=== PATIENT | female | born 1990 | race Caucasian/White ===

== ENCOUNTER → 2017-06-10 | Day surgery (SDC) | payer OTHER ==
[2017-05-10 15:36] VITALS: Ht 171.5 cm; Wt 74.6 kg
[~2017-06-10] VITALS: Ht 171.5 cm; Wt 74.6 kg
[~2017-06-10] MED LIST: ACETAMINOPHEN 1000 MG/100 ML IV IV ONE; ATROPINE SULFATE 0.1 MG/ML 5ML SYR IV PRN; CEFAZOLIN 2000MG IV PUSH 15 ML IV SCH; DEXAMETHASONE SOD INJ 4 MG/ML VIAL ONE; EpHEDrine SULFATE INJ 50 MG/ML AMP IV PRN; FENTANYL CITRATE INJ 50 MCG/1 ML 2 ML VIAL ONE; GLYCOPYRROLATE INJ 0.2 MG/ML VIAL ONE; HYDROmorphone INJ 2 MG/ML SYR/VIAL IV PRN; IBUPROFEN 600 MG TAB PO PRN; KETOROLAC TROMETHAMINE 30 MG/ML VIAL IV. PRN; KETOROLAC TROMETHAMINE 30 MG/ML VIAL ONE; LACTATED RINGER'S 1000ML 1,000 ML IV SCH; LIDOCAINE HCL 2% 2 ML VIAL (20MG/ML) ONE; MIDAZOLAM HCL 1 MG/ML 2ML VIAL ONE; NEOSTIGMINE METHYLSULFATE 5 MG/5 ML SYR ONE; ONDANSETRON INJ 2 MG/ML 2 ML VIAL IV PRN; ONDANSETRON INJ 2 MG/ML 2 ML VIAL ONE; OXYCODONE/ACETAMINOPHEN 5-325 TAB PO PRN; PHENYLEPHRINE 100MCG/ML 5ML SYR IV PRN; PROMETHAZINE HCL INJ 25 MG in SODIUM CHLORIDE 0.9% 50ML 50 ML IV PRN; PROPOFOL IV EMULSION 10 MG/ML 20 ML VIAL IV ONE; ROCURONIUM BROMIDE 10 MG/ML 5 ML VIAL IV ONE; SODIUM CHLORIDE 0.9% 1000ML 1,000 ML IV SCH
[2017-06-10 10:32] VITALS: BP 124/81; PULSE 71; TEMP 36.6; O2SAT 98
--- NOTE | 2017-06-10 12:53 | History & Physical Bridge Note ---
H&P Re-Evaluation Bridge Note: I have examined the patient, reviewed the History & Physical and in the interval since the performance of the History & Physical I have noted the following changes of clinical significance: No changes noted
--- NOTE | 2017-06-10 14:43 | [facility] Post Operative Brief Note ---
Immediate Operative Summary Operative Date Jun 10, 2017. Pre-Operative Diagnosis Right ovarian cyst, probable dermoid Post-Operative Diagnosis Same as preop Procedure(s) Performed Robotic-assisted laparoscopic Right ovarian Cystectomy Surgeon Dr. Mann [employer] Surgeon(s) Dr. Sadler Estimated Blood Loss 10 cc Findings Consistent with Post-Op Diagnosis Specimens A: right ovarian cyst Drains None Anesthesia Type General Complication(s) none Disposition Accompanied Pt To Recover: no Disposition: Recovery Room / PACU
--- NOTE | 2017-06-10 15:10 | Discharge Instructions ---
Discharge Instructions Date of Service Jun 10, 2017. Visit Reason for Visit: Vasovagal Syncope, Right Ovarian Cyst Discharge Discharge Diagnosis / Problem: Right ovarian dermoid Discharge Goals Goal(s): Specific goals Activity Recommendations Activity Limitations: per Instructions/Follow-up section Anesthesia . Post Anesthesia Instructions: If you have had General Anesthesia or IV Sedation: * Do not drive today. * Resume driving when surgeon permits. * Do not make important decisions or sign legal documents today. * Call surgeon for: 1. Temperature elevations greater than 101 degrees F. 2. Uncontrollable pain. 3. Excessive bleeding. 4. Persistent nausea and vomiting. 5. Medication intolerance (nausea, vomiting or rash). * For nausea and vomiting use only clear liquids such as: tea, soda, bouillon until nausea subsides, then gradually increase diet as tolerated. * If you have any concerns or questions, call your surgeon's office. If physician is unavailable and it is an emergency, call 911 or go to the nearest emergency room. . Instructions / Follow-Up Instructions / Follow-Up ACTIVITY RECOMMENDATIONS: * Rest the first 2-3 days. You should be back to your normal activity levels by day 3. * No heavy lifting for 2 weeks. * No intercourse, tampons or douching for 1-2 weeks. * You may shower the next day. * Do not drive anytime that you are taking narcotic pain medicines. RETURN TO SCHOOL/WORK: * May return to school or work after 2-3 days. DIET: Nausea may occur in the immediate post-operative period. If so, take clear liquids such as tea, bouillon, apple juice until all nausea has subsided, then resume usual diet. MEDICATIONS: Resume previous medications unless instructed otherwise by your surgeon. Ibuprofen 200mg 2-3 tablets every 4-6 hours as needed -- OR -- Aleve 2 tablets every 8-12 hours as needed for post-operative discomfort Medications are over the counter. Tylenol may be used if above medications are contraindicated or not preferred. Medication should be taken with food or milk. Do not take on an empty stomach. SPECIAL CARE INSTRUCTIONS: * Check temperature twice daily for one week. report any elevation over 101 degrees. * You may experience some vagina spotting and/or bleeding. This is normal for 1 -2 weeks and should not be heavier than a normal period. If it is unusual in amount, call your physician. * Post-operative discomfort may consist of a sore throat, a "bloated" feeling and pain in the shoulders. these are normal symptoms, which usually only last for 2-3 days. * Remove band-aids tomorrow and shower. There is no need to replace band-aids unless there is drainage or discomfort. FOLLOW UP VISIT: Call your doctor's office for a post-operative 2 week visit if not already scheduled. Diet Recommendations Recommended Home Diet: resume previous diet Procedures Procedures Performed: Robotic-assisted laparoscopic Right ovarian Cystectomy Pending Studies Studies pending at discharge: no Medical Emergencies . Who to Call and When: Medical Emergencies: If at any time you feel your situation is an emergency, please call 911 immediately. . Non-Emergent Contact Non-Emergency issues call your: Primary Care Provider . . "Provider Documentation" section prepared by Frida Mann. .
--- NOTE | 2017-06-10 15:34 | OPERATIVE REPORT ---
DATE OF OPERATION: 06/10/2017 PREOPERATIVE DIAGNOSIS: Right ovarian cyst, probable dermoid. POSTOPERATIVE DIAGNOSIS: Right ovarian cyst, probable dermoid. PROCEDURE: Robotic assisted laparoscopic right ovarian cystectomy. SURGEON: Dr. Mann. PHYSICIAN INTERNIST: Dr. Sadler. ESTIMATED BLOOD LOSS: 10 mL. FINDINGS: Consistent with postoperative diagnosis. SPECIMENS: Right ovarian cyst. DRAINS: None. ANESTHESIA: General. COMPLICATIONS: None. DISPOSITION: Stable to recovery. DESCRIPTION: Wilma Hilton is a 26-year-old who has a right ovarian cyst believed to be a dermoid based on imaging. The patient was brought to the operating room for a laparoscopic right ovarian cystectomy. She was placed on the table in the supine position then placed in dorsal lithotomy using Yellofin stirrups, prepped and draped in standard sterile fashion and a hard time-out was taken prior to proceeding. Garduno catheter and Bone's cannula were introduced. Attention was then turned to the abdomen where umbilical entry was made in an optical manner without complication. The abdomen was then insufflated and under direct visualization, right and left lower quadrant ports were placed. The patient was placed in Trendelenburg and visualization of the pelvic organs showed there was a normal uterus, normal tubes, normal left ovary and grossly enlarged right ovary consistent with a 4-5 cm cystic structure inside the ovary. The appendix was normal and the liver edge and left upper quadrant were normal as well. Robot was then docked. Surgery began by elevation of the right ovary to examine all the surfaces. A point of entry was selected and the cauterizing scissors were used to make a longitudinal entry point in the ovarian stroma. This was dissected using blunt and sharp technique until a plane was encountered. Approximately 90% of a large ovarian cyst was successfully shelled out of the ovary, at which point unfortunately a small entry to the cyst was made and a borrego oily type fluid was seen to escape the cyst. Another trocar site was quickly created in the left upper quadrant and this was used to introduce an EndoCatch bag which was held underneath the ovary and cyst to collect any drippings as the remainder of the cyst was detached from the ovarian stroma. The cyst was then placed inside the EndoCatch bag which was sealed and this was then brought out through the left upper quadrant site and fully enclosed in the bag. The trocar was then reintroduced and suction irrigation was used to rinse the right adnexal fossa and the ovary copiously. Brief application of electrocautery was used to tidy up small areas of oozing within the bed of the ovary where the cyst had been removed. Once the ovarian bed was hemostatic, the robot was undocked. At that time using straight stick laparoscopy, 1300 mL of normal saline irrigant were used to copiously rinse the abdominal cavity. By repositioning the bed into and out of Trendelenburg position, we were able to swash the fluid up around the abdominal organs and then rinse back down into the pelvis to allow evacuation of all of the irrigant fluid by suction in the cul-de-sac while the patient was held in reverse Trendelenburg position. We were able to remove the entire quantity of fluid and the rinsing was noted to be clear and free of any debris. The patient was then placed flat. All ports were removed after gas was allowed to escape the abdomen and the port sites were closed using UR-6 at the umbilical and left upper quadrant sites and 4-0 Monocryl at the skin level. A Dermabond dressing was then applied to each site and the Garduno and Bone's cannula were then removed. The patient was transferred in stable condition to the recovery room. I attest to the content of the Intraoperative Record and any orders documented therein. Any exceptions are noted below. MEHUL
--- NOTE | 2017-06-10 15:34 | Anesthesiology Progress Note ---
Anesthesia Post Op Note Date & Time Jun 10, 2017 at 15:34 Vital Signs Pain Intensity: 2 Vital Signs Past 12 Hours Date Time Temp Pulse Resp B/P (MAP) Pulse Ox O2 Delivery O2 Flow Rate FiO2 06/10/17 15:30 36.6 56 16 129/87 100 Room Air 06/10/17 15:25 56 16 127/82 100 Room Air 06/10/17 15:15 56 16 124/87 100 Room Air 06/10/17 15:05 56 16 128/85 100 Oxymask 10 06/10/17 14:55 56 16 118/74 100 Oxymask 10 06/10/17 14:48 36 68 16 137/81 100 Oxymask 10 06/10/17 10:32 36.6 71 18 124/81 (95) 98 Room Air Notes Mental Status: alert / awake / arousable, participated in evaluation Pt Amnestic to Procedure: Yes Nausea / Vomiting: adequately controlled Pain: adequately controlled Airway Patency, RR, SpO2: stable & adequate BP & HR: stable & adequate Hydration State: stable & adequate Anesthetic Complications: no major complications apparent
[2017-06-10 15:40] VITALS: BP 129/71; PULSE 59; TEMP 36.5; O2SAT 97
[2017-06-10 16:20] VITALS: BP 115/69; PULSE 60; TEMP 36.6; O2SAT 98
== END | disposition home or self-care (01) ==
LOC: C.ACU 09:44
PROVIDERS: ATTEND Obstetrics & Gynecology
DX: D27.0 Benign neoplasm of right ovary (principal); K21.9 Gastro-esophageal reflux disease without esophagitis; Z80.0 Family history of malignant neoplasm of digestive organs

== ENCOUNTER 2019-02-19 14:42 | Inpatient (IN) ==
[2019-02-19] MEDS ORDERED: PENICILLIN G POTASSIUM 3 MU in DEXTROSE 5% 100 ML IV PRN (14:54)
[2019-02-19] MEDS ORDERED: OXYTOCIN 30 UNITS/500 ML BAG IV PRN ×3 (14:54→17:55)
[2019-02-19] MEDS ORDERED: PENICILLIN G POTASSIUM 6 MU in DEXTROSE 5% 250 ML IV STA (15:02)
[2019-02-19] MEDS ORDERED: MAGNESIUM SULFATE 4GM / WTR 100 ML BAG IV ONE ×2 (15:12→15:13)
[2019-02-19] MEDS ORDERED: MAGNESIUM SULFATE 40GM / WTR 1,000 ML BAG IV ONE (15:12)
[2019-02-19] MEDS ORDERED: LABETALOL HCL IV 5 MG/ML 20ML IV STA (15:13)
[2019-02-19] MEDS ORDERED: LABETALOL HCL IV 5 MG/ML 20ML IV ONE (15:17)
[2019-02-19] MEDS: LACTATED RINGER'S 1,000 ML IV PRN ×2 (15:20→23:55)
[2019-02-19 15:30] LABS: Hematocrit (blood only) 34.4 % (37-47); Mean Corpuscular Hemoglobin 30.7 pg (25-34); Mean Platelet Volume 12.4 fL (7.4-10.4); Platelet Count 132 K/uL (130-400); RDW Coefficient of Variation 12.8 % (11.5-14.5); RDW Standard Deviation 40.7 fL (36.4-46.3); Red Blood Count 3.91 M/uL (4.2-5.4); White Blood Count 9.01 K/uL (4.8-10.8)
[2019-02-19 15:34] LABS: Mean Corpuscular Hgb Conc 34.9 g/dL (32-36)
--- NOTE | 2019-02-19 15:34 | History & Physical Report ---
Date of Service February 19, 2019 Assessment & Plan (1) Severe pre-eclampsia, antepartum: -Tracing category 1 with good accelerations and variability's -Patient with severe preeclampsia will start magnesium 4 g loading dose, 2 g/h -PIH labs have been drawn -Penicillin ordered for the positive GBS, but could not wait for penicillin to be in and membranes were ruptured, pediatrics aware -Patient desires epidural, have discussed with anesthesia -Patient will receive labetalol 20 mg IV as needed to bring blood pressures down -As long as labor is progressing and laboratory values are not alarming, will allow vaginal delivery -Explained all of the above to the patient, questions answered (2) Carrier of group B Streptococcus: History of Present Illness Chief Complaint: Labor Primary Care Provider: NO PCP The patient is a 28-year-old 2 para 0 with an EDC of 20 February by first trimester ultrasound who is sent to labor and delivery from the office for a labor check. Patient was evaluated in the office and found to be 5 cm and sent to labor and delivery for evaluation. Patient states that the contractions began at 0400 hrs. on day of admission and increased in intensity. She denies rupture of membranes or vaginal bleeding. The patient's course is remarkable for a short cervix that was diagnosed at the time of her anatomy ultrasound. She had a consult with maternal- medicine in [place] and she was treated with vaginal suppository progesterone until 36 weeks gestational age. The patient's course was remarkable for first trimester bleeding. She was given RhoGam for this. 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 The patient had normal 1 hour Glucola x2, and a positive third trimester beta strep culture. Allergies Allergy/AdvReac Type Severity Reaction Status Date / Time No Known Allergies Allergy Verified 02/19/19 13:56 Home Medications Home Medications Medication Instructions Recorded Confirmed Type prenat.vits,cristina,yzl-ewst-alxru 1 tab PO DAILY 09/20/18 02/19/19 History diphenhydramine HCl PO 10/31/18 02/19/19 History Patient History Medical History (Updated 02/19/19 @ 15:32 by David Thompson Jr, MD, FACOG) Bleeding in early (Inactive) History of miscarriage, currently (Inactive) History of ovarian cyst History of varicella Right ovarian cyst (Inactive) Short cervical length during Surgical History (Updated 09/20/18 @ 15:49 by Itzel Connell) History of ovarian cystectomy S/P wisdom tooth extraction Family History (Updated 09/20/18 @ 15:51 by Itzel Connell) Grandfather (Paternal) Colorectal cancer Father Diabetes Hypertension Kidney stones Dyslipidemia Sister Gestational diabetes Kidney stones Social History (Updated 09/20/18 @ 15:51 by Itzel Connell) Preferred Language: Ukrainian Communication Ability: Effective Beliefs That Will Affect Care: None marital status: Current Living Situation: Spouse Other Information That Helps Us Care for You: No Smoking Status: Never smoker Hx Alcohol Use: No Hx Substance Use: No Physical Exam Constitutional: WD/WN, vitals as above Respiratory: Auscultation: lungs clear to auscultation bilaterally Cardiovascular: RRR, no murmur, no edema Extremities: no calf tenderness Gastrointestinal (Abdomen): Gravid, vertex, positive heart tones, estimated weight of 7 pounds, positive palpable contractions Genitourinary: Cervix: 8 cm / 100%/0 station, artificial rupture membranes clear fluid Results & Data Vital Signs (Past 12 Hours) Vital Signs Temp Pulse Resp BP 02/19/19 15:29 82 178/111 H 02/19/19 15:24 67 187/113 H 02/19/19 15:13 69 183/114 H 02/19/19 15:09 71 182/115 H 02/19/19 15:04 80 196/120 H 02/19/19 14:59 74 179/111 H 02/19/19 14:52 80 161/115 H 02/19/19 14:50 97.7 F 77 22 161/115 H 02/19/19 14:49 77 184/123 H
[2019-02-19] MEDS: MAGNESIUM SULFATE / WTR 40 GM/1,000 ML BAG IV SCH (15:40)
[2019-02-19] MEDS ORDERED: fentaNYL 2MCG/ML ROPIV 1.25MG/ML 100 ML BAG EPI ONE (15:41)
[2019-02-19] MEDS ORDERED: BUPIVACAINE 0.25% 30 ML VIAL ONE (15:41)
[2019-02-19] MEDS ORDERED: fentaNYL citrate 100 MCG/2 ML VIAL ONE (15:41)
[2019-02-19] MEDS ORDERED: ePHEDrine sulfate 50 MG/ML AMP ONE (15:41)
[2019-02-19 15:44] LABS: INR 0.9 (0.9-1.1); Prothrombin Time 9.3 Seconds (9.0-12.0)
[2019-02-19 15:51] LABS: Alanine Aminotransferase 62 U/L (12-78); Albumin Level 2.5 gm/dl (3.4-5.0); Aspartate Aminotransferase 32 U/L (15-37); Bilirubin Direct < 0.1 mg/dl (0-0.2); Creatinine Clr Calc Pharmacy 110.9 ml/min; Est GFR (African American) 108.1; Est GFR (Non-African American) 93.2
[2019-02-19 15:54] LABS: Alkaline Phosphatase 228 U/L (45-117); Bilirubin,Total 0.3 mg/dl (0.2-1); Total Protein 6.7 gm/dl (6.4-8.2)
[2019-02-19] MEDS ORDERED: NALBUPHINE HCL INJ 10 MG/ML AMP IV PRN (16:03)
[2019-02-19] MEDS ORDERED: DiphenhydrAMINE HCL 50 MG/ML VIAL IV PRN (16:03)
[2019-02-19] MEDS ORDERED: NALOXONE HCL 1 MG in SODIUM CHLORIDE 0.9% 1000ML 1,000 ML IV PRN (16:03)
[2019-02-19] MEDS ORDERED: fentaNYL 2MCG/ML ROPIV 1.25MG/ML 100 ML BAG EPI PRN (16:03)
[2019-02-19] MEDS ORDERED: NALOXONE HCL 0.4 MG/1 ML VIAL/CARP IV PRN (16:03)
[2019-02-19] MEDS ORDERED: ePHEDrine sulfate 50 MG/ML AMP IV PRN (16:03)
[2019-02-19] MEDS ORDERED: ONDANSETRON INJ 2 MG/ML 2 ML VIAL IV PRN (16:03)
--- NOTE | 2019-02-19 16:03 | Anesthesiology Consultation ---
Date of Service February 19, 2019 Assessment & Plan Chart Review Chart Review: Patient NOT seen in Pre Admission Testing and Acceptable Risk for Labor Epidural Consults Requested none ASA ASA2 Proposed Anesthesia Anesthesia Type: CSE Risk / Benefits Reviewed With: PT / POA / Parent / Guardian, Accepts Plan and Informed Consent Obtained History Height/Weight Height: 5 ft 6 in Weight: 89.358 kg Allergies Allergy/AdvReac Type Severity Reaction Status Date / Time No Known Allergies Allergy Verified 02/19/19 13:56 Medications Home Medications Medication Instructions Recorded Confirmed Last Taken prenat.vits,cristina,zea-borm-mgrol 1 tab PO DAILY 09/20/18 02/19/19 Unknown diphenhydramine HCl PO 10/31/18 02/19/19 Unknown Active Medications Generic Name Dose Route Start Last Admin Trade Name Freq PRN Reason Stop Dose Admin Lactated Ringer's 1,000 mls @ 125 mls/hr 02/19/19 14:54 02/19/19 15:20 Lr IV 02/21/19 14:53 125 mls/hr .Q8H PRN Administration L&D Protocol Protocol Magnesium Sulfate 40 gm in 1,000 mls @ 50 mls/hr 02/19/19 15:15 02/19/19 15:40 Magnesium Sulfate / Wtr IV 03/21/19 15:14 50 mls/hr .Q20H KAYCE Administration NPO Date Last Intake of Fluids: 02/19/19 Time Last Intake of Fluids: 12:00 Date Last Intake of Solids: 02/19/19 Time Last Intake of Solids: 12:00 Past Medical History Medical History Bleeding in early (Inactive) History of miscarriage, currently (Inactive) History of ovarian cyst History of varicella Right ovarian cyst (Inactive) Short cervical length during Exercise / Class Metabolic Activity II 4-5 Yardwork/Stairs/Walk up hill Past Family History Family History Grandfather (Paternal) Colorectal cancer Father Diabetes Hypertension Kidney stones Dyslipidemia Sister Gestational diabetes Kidney stones Past Surgical History Surgical History History of ovarian cystectomy S/P wisdom tooth extraction Past Anesthesia History No Hx of Anesthesia Complications and No Family Hx of Anesthesia Complications History of PONV No Hx of PONV and No Hx of Motion Sickness Social History Smoking Status: Never smoker Hx Alcohol Use: No Hx Substance Use: No Physical Exam Vital Signs Last Vital Signs Temp 36.5 C 02/19/19 14:50 Pulse 91 H 02/19/19 16:01 Resp 22 02/19/19 14:50 BP 139/85 02/19/19 16:01 Pulse Ox 99 02/19/19 16:01 ENMT Mouth: no dentition abnormality Thyromental Distance: > or= 3.5 Finger Breadths Mallampati Class: II Neck normal visual inspection Respiratory normal respiratory effort Auscultation: lungs clear to auscultation bilaterally Cardiovascular Rate/Rhythm: regular rate and regular rhythm Psychiatric Orientation: alert Testing Laboratory Results 02/19/19 15:14 02/19/19 15:14 PT 9.3 Seconds (9.0-12.0) 02/19/19 15:14 INR 0.9 (0.9-1.1) 02/19/19 15:14
--- NOTE | 2019-02-19 16:03 | Labor Progress Brief Note ---
Date of Service February 19, 2019 Subjective Reason For Note: Routine Evaluation Assessment & Plan (1) Severe pre-eclampsia, antepartum: - tracing at II - patient with intrathecal - will begin 2nd stage Physical Exam Genitourinary: Cervix: Complete/ZHOU/(+)2 Results & Data Vital Signs (Past 12 Hours) Vital Signs Temp Pulse Resp BP Pulse Ox 02/19/19 16:01 91 H 139/85 99 02/19/19 16:00 102 H 88 L 02/19/19 15:57 82 170/96 H 02/19/19 15:56 81 100 02/19/19 15:55 78 179/104 H 02/19/19 15:53 76 173/109 H 02/19/19 15:51 76 170/106 H 100 02/19/19 15:46 82 100 02/19/19 15:45 76 183/111 H 02/19/19 15:41 79 99 02/19/19 15:40 74 161/111 H 02/19/19 15:36 74 98 02/19/19 15:35 77 178/98 H 02/19/19 15:31 84 97 02/19/19 15:29 82 178/111 H 02/19/19 15:24 67 187/113 H 02/19/19 15:13 69 183/114 H 02/19/19 15:09 71 182/115 H 02/19/19 15:04 80 196/120 H 02/19/19 14:59 74 179/111 H 02/19/19 14:52 80 161/115 H 02/19/19 14:50 97.7 F 77 22 161/115 H 02/19/19 14:49 77 184/123 H
[2019-02-19 16:28] LABS: Protein Creatinine Ratio Urine 2.3 (0-0.2); Total Protein Urine Random 572.7 mg/dl (0-11.9)
--- NOTE | 2019-02-19 17:13 | Delivery Summary ---
Vaginal Delivery Summary Date of Service February 19, 2019 Vaginal Delivery Summary Findings: Viable female infant with Apgars of 8 and 9. Baby delivered by vacuum extraction over midline episiotomy for category 3 tracing. Cord gases cord blood samples obtained. Cord blood donation kit collected. Placenta delivered spontaneously and sent for pathological evaluation. Midline episiotomy repaired with 4-0 and 2-0 Vicryl in a routine fashion. Estimated blood loss 300 cc. Labor Course: The patient is a 28-year-old 2 para 0 with an EDC of 20 February by first trimester ultrasound who is sent to labor and delivery from the office for a labor check. Patient was evaluated in the office and found to be 5 cm and sent to labor and delivery for evaluation. Patient states that the contractions began at 0400 hrs. on day of admission and increased in intensity. She denies rupture of membranes or vaginal bleeding. The patient's course is remarkable for a short cervix that was diagnosed at the time of her anatomy ultrasound. She had a consult with maternal- medicine in [place] and she was treated with vaginal suppository progesterone until 36 weeks gestational age. The patient's course was remarkable for first trimester bleeding. She was given RhoGam for this. 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 The patient had normal 1 hour Glucola x2, and a positive third trimester beta strep culture. Upon admission to labor and delivery the patient had a markedly elevated blood pressure with +2 to +3 protein. Laboratory values were consistent with severe preeclampsia. Preeclamptic labs were drawn and sent in a stat fashion. Garduno catheter was inserted into the bladder. Because of the markedly elevated blood pressure and the patient received labetalol 20 mg IV x1. Magnesium was started with a 4 g loading dose and then 2 g/h continuously. PI labs came back with a platelet count of 132,000, normal liver function test, but a protein to creatinine urinary ratio of 2.3. The patient was progressing rapidly in labor and was 8 cm approximately 30 minutes after arrival. Penicillin was hung because of the positive GBS status, but because of the severe preeclampsia artificial rupture of membranes for clear fluid. Anesthesia was consulted and an intrathecal was placed. Following placement of the intrathecal the patient was fully dilated and began her second stage. Up until this point the tracing had been category 2 with good variability and accelerations. With the second stage the patient was tracing began to show variable decelerations. She then started to have bradycardic episodes into the 60s to 70s. The vertex was on the perineum with the category 3 tracing. Diagnosis was explained to the patient and her partner and a vacuum was applied over midline episiotomy with 3 pulls and 2 pop offs delivering the viable female infant. Cord blood samples and cord gas samples were obtained. Donation cord blood sample was also collected and sent. Placenta was delivered spontaneously and sent for pathological evaluation. The midline episiotomy was repaired with 4-0 and 2-0 Vicryl in a routine fashion. Estimated blood loss was 300 cc. Sponge and needle count was correct. With the severe preeclampsia, the patient will remain on magnesium for 24 hours . Serial CBCs and magnesium levels will be drawn. Garduno catheter was reinserted into the bladder to manage I's and O's.
[2019-02-19 17:34] LABS: Base Excess Cord Arterial Bld -4.3 mEq/L (-9-1.8); CO2 Cord Arterial Blood 60 mmHg (39.1-73.5); HCO3 Cord Arterial Blood 25 mmol/L (19.7-28.5); PO2 Cord Arterial Blood 17.6 % (4.1-31.7); pH Cord Arterial Blood 7.23 (7.1-7.38)
--- NOTE | 2019-02-19 17:39 | Anesthesia Procedure Note ---
Date of Service February 19, 2019 Anesthesia Post Epidural Note Vital Signs Vital Signs: Temp Pulse Resp BP Pulse Ox 36.9 C 83 18 159/109 H 99 02/19/19 17:00 02/19/19 17:31 02/19/19 17:15 02/19/19 17:31 02/19/19 17:01 Notes Mental Status: alert / awake / arousable Nausea / Vomiting: adequately controlled Pain: adequately controlled Airway Patency, RR, SpO2: stable & adequate BP & HR: see Notes below (HTN of PreEcclampsia improving with treatment, managed by OB.) Hydration State: stable & adequate Neuraxial Anesthesia: was administered and sensory block is resolving Anesthetic Complications: no major complications apparent and Pt Satisfied with anesthetic care Epidural: Removed without complications and With tip intact
[2019-02-19 17:52] LABS: Base Excess Cord Venous Blood -4.3 mEq/L (-7.7-1.9); Cord Venous Blood HCO3 22 mmol/L (18.4-26.8); Cord Venous Blood PCO2 46 mmHg (30.4-57.2); Cord Venous Blood PO2 27 mmHg (14.1-43.3); Oxygen Sat Cord Arterial Blood < 60.0 % (<60)
[2019-02-19 17:53] LABS: O2 Saturation Cord Venous Bld < 60.0 % (<68)
[2019-02-19] MEDS ORDERED: BENZOCAINE 20% AER SPR 82.5 GM CAN EXT PRN (17:55)
[2019-02-19] MEDS ORDERED: HYDROCORTISONE ACETATE 25 MG SUPP PR PRN (17:55)
[2019-02-19] MEDS ORDERED: DIPHTHERIA/TETANUS/PERTUSSIS 0.5 ML SYR/VIAL IM ONE (17:55)
[2019-02-19] MEDS ORDERED: ACETAMINOPHEN W/CODEINE #3 1 TAB PO PRN (17:55)
[2019-02-19] MEDS ORDERED: SUPERCREAM 0.870% 15 GM JAR EXT PRN (17:55)
--- NOTE | 2019-02-19 18:20 | Obstetrical Progress Note ---
Date of Service February 19, 2019 Assessment & Plan (1) Vasovagal syncope: --Patient with history of vasovagal syncope -Patient with 100% saturation O2 -We will continue to monitor Subjective Asked by nursing to evaluate patient for bradycardia. Patient states that she felt lightheaded and dizzy. Patient states that she has a history of vasovagal syncope. She has been worked up for this with no known etiology. Patient states that she began to feel lightheaded while nursing. Patient denies any other symptoms. Physical Exam After laying the patient supine her pulse returned to 70 Results & Data Vital Signs (Past 12 Hours) Vital Signs Temp Pulse Resp BP Pulse Ox 02/19/19 18:16 67 133/71 99 02/19/19 18:11 58 L 100 02/19/19 18:10 52 L 112/59 L 02/19/19 18:00 85 130/75 02/19/19 17:48 81 121/64 02/19/19 17:31 83 159/109 H 02/19/19 17:15 88 18 168/93 H 02/19/19 17:04 88 168/93 H 02/19/19 17:01 99 H 99 02/19/19 17:00 98.4 F 113 H 18 167/74 H 86 L 02/19/19 16:59 113 H 167/74 H 02/19/19 16:58 92 H 159/87 H 02/19/19 16:56 97 H 93 02/19/19 16:53 90 86 L 02/19/19 16:52 93 H 188/110 H 02/19/19 16:51 91 H 100 02/19/19 16:46 96 H 154/69 H 100 02/19/19 16:42 107 H 101/50 L 02/19/19 16:41 96 H 91 02/19/19 16:39 85 137/74 02/19/19 16:38 88 87 L 02/19/19 16:37 89 143/81 H 02/19/19 16:36 78 100 02/19/19 16:35 91 H 132/67 02/19/19 16:33 76 143/76 H 02/19/19 16:31 80 114/91 100 02/19/19 16:29 84 127/74 02/19/19 16:26 87 97 02/19/19 16:25 85 128/67 02/19/19 16:24 90 90 02/19/19 16:23 86 121/65 02/19/19 16:21 85 92 02/19/19 16:19 85 136/75 02/19/19 16:18 108 H 156/77 H 02/19/19 16:17 85 92 02/19/19 16:16 86 100 02/19/19 16:15 90 123/68 02/19/19 16:13 88 126/78 02/19/19 16:11 100 H 125/73 100 02/19/19 16:09 85 128/85 02/19/19 16:07 88 132/85 02/19/19 16:06 93 H 100 02/19/19 16:05 93 H 84 L 02/19/19 16:03 88 130/82 02/19/19 16:01 91 H 139/85 99 02/19/19 16:00 102 H 88 L 02/19/19 15:57 82 170/96 H 02/19/19 15:56 81 100 02/19/19 15:55 78 179/104 H 02/19/19 15:53 76 173/109 H 02/19/19 15:51 76 170/106 H 100 02/19/19 15:46 82 100 02/19/19 15:45 76 183/111 H 02/19/19 15:41 79 99 02/19/19 15:40 74 161/111 H 02/19/19 15:36 74 98 02/19/19 15:35 77 178/98 H 02/19/19 15:31 84 97 02/19/19 15:29 82 178/111 H 02/19/19 15:24 67 187/113 H 02/19/19 15:13 69 183/114 H 02/19/19 15:09 71 182/115 H 02/19/19 15:04 80 196/120 H 02/19/19 14:59 74 179/111 H 02/19/19 14:52 80 161/115 H 02/19/19 14:50 97.7 F 77 22 161/115 H 02/19/19 14:49 77 184/123 H
[2019-02-19 22:28] LABS: Hematocrit (blood only) 29.4 % (37-47); Hemoglobin 10.3 g/dL (12.0-16.0); Mean Corpuscular Hemoglobin 30.7 pg (25-34); Mean Corpuscular Volume 87.8 fL (80-100); Mean Platelet Volume 12.2 fL (7.4-10.4); Platelet Count 137 K/uL (130-400); RDW Coefficient of Variation 12.7 % (11.5-14.5); RDW Standard Deviation 41.1 fL (36.4-46.3); Red Blood Count 3.35 M/uL (4.2-5.4); White Blood Count 14.34 K/uL (4.8-10.8)
[2019-02-19 22:51] LABS: Immature Granulocytes # (auto) 0.04 K/uL (0.00-0.02); Immature Granulocytes % (auto) 0.3 %; Lymphocytes # (auto) 1.49 K/uL (1.2-3.4); Lymphocytes % (auto) 10.4 %; Monocytes # (auto) 0.83 K/uL (0.11-0.59); Monocytes % (auto) 5.8 %; Neutrophils # (auto) 11.98 K/uL (1.4-6.5); Neutrophils % (auto) 83.5 %
[2019-02-20] MEDS: DOCUSATE SODIUM 100 MG CAP PO SCH ×3 (01:20→20:48)
[2019-02-20] MEDS: IBUPROFEN 600 MG TAB PO PRN ×3 (02:28→17:44)
[2019-02-20 04:31] LABS: Basophils # (auto) 0.02 K/uL (0-0.2); Basophils % (auto) 0.2 %; Eosinophils # (auto) 0.01 K/uL (0-0.5); Eosinophils % (auto) 0.1 %; Hematocrit (blood only) 26.9 % (37-47); Immature Granulocytes # (auto) 0.03 K/uL (0.00-0.02); Immature Granulocytes % (auto) 0.2 %; Lymphocytes # (auto) 1.83 K/uL (1.2-3.4); Mean Corpuscular Hgb Conc 33.5 g/dL (32-36); Mean Corpuscular Volume 89.7 fL (80-100); Mean Platelet Volume 12.3 fL (7.4-10.4); Monocytes # (auto) 0.75 K/uL (0.11-0.59); Monocytes % (auto) 6.1 %; Neutrophils # (auto) 9.59 K/uL (1.4-6.5); Neutrophils % (auto) 78.4 %; Platelet Count 135 K/uL (130-400); RDW Coefficient of Variation 12.9 % (11.5-14.5); RDW Standard Deviation 41.3 fL (36.4-46.3); White Blood Count 12.23 K/uL (4.8-10.8)
--- NOTE | 2019-02-20 07:24 | Obstetrical Progress Note ---
Date of Service February 20, 2019 Assessment & Plan (1) Severe pre-eclampsia, antepartum: - patient diuresing, 2600 cc - BP still mildly elevated - Mg therapeutic - will continue Mg for 24hr pp - will d/c Perdomo now - H/H appropriate drop, platelets stable Subjective Ambulation: limited ambulation Voiding: perdomo catheter in place Diet Tolerance:: regular diet Physical Exam Constitutional WD/WN, vitals as above Gastrointestinal (Abdomen) Fundus firm below umbilicus Musculoskeletal No deep calf tenderness Neurologic patellar DTR's 2+ bilat, sensation intact Results & Data Vital Signs (Past 12 Hours) Vital Signs Temp Pulse Resp BP Pulse Ox 02/20/19 07:17 82 100 02/20/19 07:12 87 99 02/20/19 07:07 110 H 100 02/20/19 07:02 88 100 02/20/19 07:01 88 138/91 02/20/19 06:57 77 98 02/20/19 06:52 75 98 02/20/19 06:47 74 98 02/20/19 06:42 75 98 02/20/19 06:37 76 98 02/20/19 06:32 71 98 02/20/19 06:31 69 118/73 02/20/19 06:27 77 98 02/20/19 06:22 79 98 02/20/19 06:17 77 98 02/20/19 06:12 77 98 02/20/19 06:07 92 H 98 02/20/19 06:02 98 H 100 02/20/19 06:01 86 132/84 02/20/19 06:00 18 02/20/19 05:57 94 H 99 02/20/19 05:52 87 99 02/20/19 05:47 86 98 02/20/19 05:42 90 99 02/20/19 05:37 88 99 02/20/19 05:32 93 H 99 02/20/19 05:31 90 124/72 02/20/19 05:27 90 98 02/20/19 05:22 103 H 99 02/20/19 05:17 84 98 02/20/19 05:15 18 02/20/19 05:12 86 97 02/20/19 05:07 87 97 02/20/19 05:02 82 98 02/20/19 05:01 80 121/70 02/20/19 04:57 84 98 02/20/19 04:52 84 99 02/20/19 04:47 82 99 02/20/19 04:42 81 98 02/20/19 04:37 83 99 02/20/19 04:32 79 130/71 98 02/20/19 04:27 82 98 02/20/19 04:22 83 98 02/20/19 04:17 97 H 98 02/20/19 04:15 18 02/20/19 04:12 89 97 02/20/19 04:07 88 97 02/20/19 04:02 82 97 02/20/19 04:01 107 H 121/75 02/20/19 03:57 83 98 02/20/19 03:52 87 97 02/20/19 03:47 83 97 02/20/19 03:42 79 97 02/20/19 03:37 97 H 99 02/20/19 03:32 91 H 98 02/20/19 03:31 93 H 134/83 02/20/19 03:27 102 H 98 02/20/19 03:22 103 H 98 02/20/19 03:17 103 H 97 02/20/19 03:15 98.2 F 102 H 18 98 02/20/19 03:12 105 H 97 02/20/19 03:07 105 H 98 02/20/19 03:02 103 H 98 02/20/19 03:01 100 H 141/82 H 02/20/19 02:57 107 H 98 02/20/19 02:52 100 H 98 02/20/19 02:47 103 H 99 02/20/19 02:42 100 H 99 02/20/19 02:37 113 H 100 02/20/19 02:32 95 H 176/99 H 100 02/20/19 02:27 102 H 100 02/20/19 02:22 111 H 100 02/20/19 02:17 105 H 100 02/20/19 02:15 18 02/20/19 02:12 84 100 02/20/19 02:07 84 100 02/20/19 02:02 88 100 02/20/19 02:01 88 136/85 02/20/19 01:57 79 100 02/20/19 01:52 89 100 02/20/19 01:47 88 100 02/20/19 01:42 90 100 02/20/19 01:37 87 100 02/20/19 01:32 91 H 100 02/20/19 01:31 93 H 131/83 02/20/19 01:27 86 100 02/20/19 01:22 83 100 02/20/19 01:17 87 100 02/20/19 01:15 18 02/20/19 01:12 88 100 02/20/19 01:07 87 100 02/20/19 01:02 85 100 02/20/19 01:01 92 H 128/80 02/20/19 00:57 86 100 02/20/19 00:52 85 100 02/20/19 00:47 86 100 02/20/19 00:42 85 100 02/20/19 00:37 83 100 02/20/19 00:32 103 H 100 02/20/19 00:31 97 H 134/84 02/20/19 00:27 114 H 100 02/20/19 00:22 106 H 100 02/20/19 00:17 101 H 100 02/20/19 00:15 18 02/20/19 00:12 101 H 100 02/20/19 00:10 96 H 164/89 H 02/20/19 00:07 102 H 100 02/20/19 00:02 102 H 176/100 H 100 02/19/19 23:57 97 H 100 02/19/19 23:52 90 100 02/19/19 23:47 98 H 100 02/19/19 23:42 112 H 100 02/19/19 23:37 92 H 100 02/19/19 23:32 97 H 100 02/19/19 23:31 102 H 144/97 H 02/19/19 23:27 93 H 100 02/19/19 23:22 93 H 100 02/19/19 23:17 95 H 100 02/19/19 23:15 98.1 F 93 H 18 100 02/19/19 23:12 103 H 99 02/19/19 23:07 96 H 100 02/19/19 23:02 88 100 02/19/19 23:00 90 149/89 H 02/19/19 22:57 99 H 100 02/19/19 22:52 94 H 100 02/19/19 22:47 89 100 02/19/19 22:45 93 H 144/82 H 02/19/19 22:42 91 H 100 02/19/19 22:37 89 100 02/19/19 22:32 94 H 100 02/19/19 22:31 77 167/87 H 02/19/19 22:21 93 H 99 02/19/19 22:16 91 H 100 02/19/19 22:15 92 H 18 142/89 H 02/19/19 22:11 89 100 02/19/19 22:06 102 H 99 02/19/19 22:01 98 H 100 02/19/19 22:00 93 H 140/78 02/19/19 21:56 94 H 99 02/19/19 21:51 90 100 02/19/19 21:46 93 H 99 02/19/19 21:45 96 H 158/80 H 02/19/19 21:41 95 H 99 02/19/19 21:36 95 H 98 02/19/19 21:31 94 H 142/84 H 99 02/19/19 21:26 102 H 99 02/19/19 21:21 93 H 100 02/19/19 21:16 93 H 100 02/19/19 21:15 92 H 18 131/74 02/19/19 21:11 79 99 02/19/19 21:06 78 99 02/19/19 21:01 76 99 02/19/19 21:00 87 136/79 02/19/19 20:56 75 98 02/19/19 20:51 74 99 02/19/19 20:46 74 98 02/19/19 20:45 80 127/72 02/19/19 20:41 73 99 02/19/19 20:36 67 99 02/19/19 20:31 68 99 02/19/19 20:30 70 124/70 02/19/19 20:26 68 98 02/19/19 20:21 92 H 100 02/19/19 20:16 85 100 02/19/19 20:15 75 18 120/66 02/19/19 20:11 76 99 02/19/19 20:06 80 100 02/19/19 20:01 84 100 02/19/19 20:00 90 139/77 02/19/19 19:56 81 100 02/19/19 19:51 83 100 02/19/19 19:46 100 H 95 02/19/19 19:45 80 140/81 02/19/19 19:41 84 100 02/19/19 19:36 75 100 02/19/19 19:31 79 100 02/19/19 19:30 77 141/81 H 02/19/19 19:26 81 100 02/19/19 19:21 79 99
[2019-02-20] MEDS ORDERED: PRENATAL VITAMIN 1 TAB PO SCH (08:00)
[2019-02-20] MEDS ORDERED: Nursing to Pharmacy Communication ONE (09:05)
[2019-02-20] MEDS: FERROUS SULFATE 325 MG TAB PO SCH (09:19)
[2019-02-20 10:25] LABS: Basophils # (auto) 0.01 K/uL (0-0.2); Basophils % (auto) 0.1 %; Eosinophils # (auto) 0.01 K/uL (0-0.5); Eosinophils % (auto) 0.1 %; Hematocrit (blood only) 28.2 % (37-47); Hemoglobin 9.6 g/dL (12.0-16.0); Immature Granulocytes # (auto) 0.03 K/uL (0.00-0.02); Immature Granulocytes % (auto) 0.3 %; Lymphocytes # (auto) 1.77 K/uL (1.2-3.4); Lymphocytes % (auto) 16.5 %; Monocytes # (auto) 0.57 K/uL (0.11-0.59); Monocytes % (auto) 5.3 %; Neutrophils # (auto) 8.36 K/uL (1.4-6.5); Neutrophils % (auto) 77.7 %; Platelet Count 132 K/uL (130-400); RDW Coefficient of Variation 13.2 % (11.5-14.5); RDW Standard Deviation 43.3 fL (36.4-46.3); White Blood Count 10.75 K/uL (4.8-10.8)
[2019-02-20] MEDS: MAGNESIUM SULFATE / WTR 40 GM/1,000 ML BAG IV SCH (10:38)
[2019-02-20] MEDS: LACTATED RINGER'S 1,000 ML IV PRN (13:21)
[2019-02-20] MEDS: ACETAMINOPHEN 325 MG TAB PO PRN (17:46)
[2019-02-20] MEDS ORDERED: bisacodyL 5 MG TABEC PO SCH (20:00)
[2019-02-20] MEDS: PRENATAL VITAMIN 1 TAB PO SCH (20:48)
[2019-02-20] MEDS ORDERED: NIFEdipine 10 MG CAP PO SCH (21:00)
[2019-02-21] MEDS: ACETAMINOPHEN 325 MG TAB PO PRN (03:07)
[2019-02-21] MEDS: IBUPROFEN 600 MG TAB PO PRN ×4 (04:17→23:53)
[2019-02-21] MEDS: NIFEdipine 10 MG CAP PO SCH ×2 (04:39→12:51)
--- NOTE | 2019-02-21 06:45 | Obstetrical Progress Note ---
Date of Service February 21, 2019 Assessment & Plan (1) state: Patient's blood pressures are somewhat fluctuating I have started her on nifedipine 10 mg p.o. every 8 hours blood pressures have improved but we will monitor today. Her headache is improving but is still present Subjective Ambulation: ambulating normally Voiding: no voiding problems Passing Gas:: Yes Diet Tolerance:: regular diet Lochia:: Small Feeding Type:: breast feeding Current Pain Level(1-10): 0 Physical Exam Constitutional WD/WN, vitals as above Gastrointestinal (Abdomen) normal bowel sounds, soft, nontender, no hepatosplenomegaly ext neg Results & Data Vital Signs (Past 12 Hours) Vital Signs Temp Pulse Resp BP Pulse Ox 02/21/19 05:15 117 H 135/81 02/21/19 04:15 81 16 156/101 H 02/20/19 23:35 98.2 F 88 16 127/88 02/20/19 22:00 94 H 124/79 02/20/19 21:15 145 H 135/82 02/20/19 20:15 181/113 H 02/20/19 19:30 98.2 F 95 H 16 166/92 H 99
[2019-02-21] MEDS: DOCUSATE SODIUM 100 MG CAP PO SCH ×2 (09:15→20:32)
[2019-02-21] MEDS: FERROUS SULFATE 325 MG TAB PO SCH (09:16)
--- NOTE | 2019-02-21 14:17 | Obstetrical Progress Note ---
Date of Service February 21, 2019 Assessment & Plan (1) Severe pre-eclampsia, antepartum: (2) state: notified by nursing about pt recent bp. bp trend viewed. apparently pt without headache but continues to feel "jittery" shortly after nifedipine dose. Nurse also tells me 1350 bp is 161/98. rec stop nifedipine and trial labetalol, 100mg now and then plan bid. Will see if SE profile ok and will need to adjust dose if needed. Results & Data Vital Signs (Past 12 Hours) Vital Signs Temp Pulse Resp BP Pulse Ox 02/21/19 12:00 98.6 F 94 H 18 150/92 H 99 02/21/19 07:05 98.1 F 97 H 16 138/92 99 02/21/19 05:15 117 H 135/81 02/21/19 04:15 81 16 156/101 H PG Care Time/CCT Total # of Minutes Spent Total Time Spent with Patient: Total time spent is greater than 50% in coordination of care (as documented) at patient's floor/unit and/or counseling patient:
[2019-02-21] MEDS ORDERED: LABETALOL HCL 100 MG TAB PO ONE (14:30)
[2019-02-21] MEDS: PRENATAL VITAMIN 1 TAB PO SCH (20:33)
[2019-02-21] MEDS ORDERED: LABETALOL HCL 100 MG TAB PO SCH (21:00)
--- NOTE | 2019-02-22 07:30 | Obstetrical Progress Note ---
Date of Service February 22, 2019 Assessment & Plan (1) state: doing well, stable for d/c home, instructions reviewed. bp med working well, will cont and plan one wk bp check in office. discussed that residual htn can occur and likely needs to make f/u with pcp in next 6-8wks. she will need to have routine 6wk pp check as well. send labetalol to pharm. (2) Severe pre-eclampsia, antepartum: Day #:: 2 Subjective Ambulation: ambulating normally Voiding: no voiding problems Diet Tolerance:: regular diet Lochia:: Small Feeding Type:: breast feeding no pain issues, has headache off and on but does not feel it is positional and its much better today. on new bp med, denies SE that concerns her. Physical Exam Constitutional WD/WN, vitals as above Respiratory normal respiratory effort, lungs clear to auscultation Cardiovascular Rate/Rhythm: regular rate and regular rhythm Gastrointestinal (Abdomen) Inspection/Auscultation: abdomen normal to inspection Percussion/Palpation: abdomen soft fundus firm 2 cm below umbilicus Musculoskeletal nt calves tr edema Neurologic grossly normal Psychiatric A+Ox3, euthymic affect Results & Data Vital Signs (Past 12 Hours) Vital Signs Temp Pulse Resp BP Pulse Ox 02/21/19 23:55 97.9 F 87 18 139/94 98 02/21/19 20:30 85 150/89 H
--- NOTE | 2019-02-22 07:41 | Discharge Summary ---
Date of Service February 22, 2019 Admission HPI Per Admitting Provider The patient is a 28-year-old 2 para 0 with an EDC of 20 February by first trimester ultrasound who is sent to labor and delivery from the office for a labor check. Patient was evaluated in the office and found to be 5 cm and sent to labor and delivery for evaluation. Patient states that the contractions began at 0400 hrs. on day of admission and increased in intensity. She denies rupture of membranes or vaginal bleeding. The patient's course is remarkable for a short cervix that was diagnosed at the time of her anatomy ultrasound. She had a consult with maternal- medicine in [place] and she was treated with vaginal suppository progesterone until 36 weeks gestational age. The patient's course was remarkable for first trimester bleeding. She was given RhoGam for this. 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 The patient had normal 1 hour Glucola x2, and a positive third trimester beta strep culture. Discharge Data Consultations 02/19/19 14:54 Consult Anesthesiology Stat Hospital Course (1) Severe pre-eclampsia, antepartum: Upon admission to labor and delivery the patient had a markedly elevated blood pressure with +2 to +3 protein. Laboratory values were consistent with severe preeclampsia. Preeclamptic labs were drawn and sent in a stat fashion. Garduno catheter was inserted into the bladder. Because of the markedly elevated blood pressure and the patient received labetalol 20 mg IV x1. Magnesium was started with a 4 g loading dose and then 2 g/h continuously. [facility] labs came back with a platelet count of 132,000, normal liver function test, but a protein to creatinine urinary ratio of 2.3. The patient was progressing rapidly in labor and was 8 cm approximately 30 minutes after arrival. Penicillin was hung because of the positive GBS status, but because of the severe preeclampsia artificial rupture of membranes for clear fluid. Anesthesia was consulted and an intrathecal was placed. Following placement of the intrathecal the patient was fully dilated and began her second stage. Up until this point the tracing had been category 2 with good variability and accelerations. With the second stage the patient was tracing began to show variable decelerations. She then started to have bradycardic episodes into the 60s to 70s. The vertex was on the perineum with the category 3 tracing. Diagnosis was explained to the patient and her partner and a vacuum was applied over midline episiotomy with 3 pulls and 2 pop offs delivering the viable female infant. Cord blood samples and cord gas samples were obtained. Donation cord blood sample was also collected and sent. Placenta was delivered spontaneously and sent for pathological evaluation. The midline episiotomy was repaired with 4-0 and 2-0 Vicryl in a routine fashion. Estimated blood loss was 300 cc. Sponge and needle count was correct. With the severe preeclampsia, the patient will remain on magnesium for 24 hours . Serial CBCs and magnesium levels will be drawn. Garduno catheter was reinserted into the bladder to manage I's and O's. The patient also carries a diagnosis of vasovagal syncope. Approximately 2 hours after delivery the patient had a bradycardia episode to the 50s and she felt lightheaded and dizzy. This resolved spontaneously. The patient remained on magnesium for 24 hours . Serial lab values were checked which showed therapeutic magnesium levels. Platelets stayed stable during this time. After 24 hours the patient's magnesium was discontinued. The patient's blood pressure on the 1st day remain labile and a decision was made to start the patient on nifedipine 10 milligrams p.o. t.i.d.. On the nifedipine the patient continued to have labile blood pressures and had another episode of feeling jittery. Etiology of this was unclear but since the blood pressure continued to be labile, the patient was changed over to labetalol 100 milligrams p.o. b.i.d.. Her blood pressures remain mildly elevated on this but she was discharged home on the current dose to follow up in 1 week for an outpatient blood pressure check.
[2019-02-22] MEDS ORDERED: LABETALOL HCL 200 MG TAB PO SCH (08:30)
[2019-02-22] MEDS: DOCUSATE SODIUM 100 MG CAP PO SCH (08:40)
[2019-02-22] MEDS: IBUPROFEN 600 MG TAB PO PRN ×3 (08:40→16:40)
[2019-02-22] MEDS: FERROUS SULFATE 325 MG TAB PO SCH (08:41)
[2019-02-22] MEDS ORDERED: LABETALOL HCL 100 MG TAB PO SCH (09:15)
== END 2019-02-22 19:00 | disposition home or self-care (01) | DRG 807 ==
LOC: OPB 14:42 → 4S1 14:44 → 4S2 02-20 17:02

== ENCOUNTER 2021-08-28 05:51 | Inpatient (IN) ==
[2021-08-28] MEDS ORDERED: OXYTOCIN 30 UNITS/500 ML BAG IV PRN ×2 (06:31→09:37)
[2021-08-28] MEDS ORDERED: LACTATED RINGER'S 1,000 ML IV PRN (06:31)
[2021-08-28] MEDS ORDERED: PENICILLIN G POTASSIUM 6 MU in DEXTROSE 5% 250 ML IV ONE (06:45)
[2021-08-28 07:06] LABS: Hematocrit (blood only) 36.2 % (34.1-44.9); Hemoglobin 12.5 g/dl (12.0-16.0); Mean Corpuscular Hemoglobin 30.4 pg (25.0-34.0); Mean Corpuscular Hgb Conc 34.5 g/dL (32.0-36.0); Mean Corpuscular Volume 88.1 fL (80.0-100.0); Mean Platelet Volume 11.7 fL (9.4-12.3); Platelet Count 141 K/uL (130-400); RDW Coefficient of Variation 12.9 % (11.5-14.5); RDW Standard Deviation 41.4 fL (36.4-46.3); Red Blood Count 4.11 M/uL (3.93-5.22); White Blood Count 9.22 K/ul (4.8-10.8)
--- NOTE | 2021-08-28 07:55 | History & Physical Report ---
Date of Service August 28, 2021 Assessment & Plan (1) Encounter for supervision of normal in multigravida: (2) Group B streptococcal infection during : (3) History of prior with short cervix, currently : (4) History of severe pre-eclampsia: Plan 30 year old female at 39 3/7 1. Fetus: Cat 1 2. Labor: Active 3. GBS +: penicillin ordered 4. Vitals: Normal Admission and Anticipated Discharge Date Admission Date: August 28, 2021 History of Present Illness Primary Care Provider: [facility] Wilma is a 30 y/o female currently at 39 3/7 WGA with an CAROL 09/01/2021 as determined by formal dating scan who is here for . Of not she has a prior history of preeclampsia and was started on ASA 81 mg at 12 weeks and short cervix with prior . contractions started at 2am, 4-5 minutes apart at 4am ; + movement; no fluid loss; no bloody show External FHT and external uterine monitors used; Category 1 tracing; moderate FHT variability. Had regular appointments with OB. Labs: (02/01/21) Blood type: A+ Antibody screen: negative H.5(today) Hct:36.2 (today) WBC: 9.22 (today) Plt: 141(today) Rubella: immune VDRL/RPR: nonreactive Gonorrhea: not detected Chlamydia: not detected HIV: neg HbSAg: neg GBS: + Other screens: cfdna-low risk--mln Patient carrier for SMA, Cf was negative 2hr gtt third trimester wnl Allergies Allergy/AdvReac Type Severity Reaction Status Date / Time No Known Allergies Allergy Verified 08/25/21 10:58 Home Medications Medication Instructions Recorded Confirmed Type prenat.vits,cristina,[id number] 1 tab PO DAILY 09/20/18 08/28/21 History cholecalciferol (vitamin D3) 1 cap PO DAILY 01/21/21 08/28/21 History aspirin 81 mg capsule 81 mg PO DAILY 08/28/21 08/28/21 History Patient History Medical History (Updated 08/28/21 @ 07:39 by Eduardo Joshi MD) Vasovagal syncope Surgical History History of ovarian cystectomy S/P wisdom tooth extraction Family History Grandfather (Paternal) Colorectal cancer Father Diabetes Hypertension Kidney stones Dyslipidemia Sister Gestational diabetes Kidney stones Bipolar disorder Denies family history of Ovarian cancer Breast cancer Uterine cancer Social History Smoking Status: Never smoker Hx Alcohol Use: No Hx Substance Use: No Preferred Language: Kazakh Communication Ability: Effective Division Traffic Superintendent Required: No Beliefs That Will Affect Care: None marital status: marital status details: Ed Hilton (31) [phone] Current Living Situation: Spouse and Family Current Living Situation Comment: lives with spouse, daughter, cats-spouse changing litter current occupational status: student current occupation: grad student [employer] Other Information That Helps Us Care for You: No Feels Safe at Home: Yes Safety Concerns: Feels Safe At This Time Assistive Devices: Contacts Review of Systems Denies fever, chills, sweats Denies shortness of breath, difficulty breathing, chest pain, palpitations, chest pressure. Denies breast pain. Denies dysuria. Denies headache or changes in vision. Physical Exam Physical Exam: General: Alert, oriented. No acute distress. Cardiac: Regular rate and rhythm, no murmurs/rubs/gallops. Respiratory: Clear to auscultation bilaterally a/p, no wheezes/rales/rhonchi. No increased work of breathing. Symmetrical chest rise. No respiratory distress. Abdomen: Gravid Pelvic: Dilation 4.5 cm; Effacement 80; Station -2 per nurse exam Lower Extremities: No lower extremity edema or swelling. No deep calf pain. Mitchell's negative bilaterally Results & Data ([facility]) Vital Signs (Past 12 Hours) Vital Signs Temp Pulse Resp BP 08/28/21 07:29 36.5 C 78 22 130/91 08/28/21 06:29 72 133/85 08/28/21 06:03 75 131/91 08/28/21 05:56 37.1 C 18 Supervising Physician Co-Signing Physician Notes Agree with the above findings and plan Resident Activity Tracking Resident Involvement: Resident Care Provided Care Provided: OB Delivery
[2021-08-28] MEDS ORDERED: SODIUM CHLORIDE 0.9% INJ 10 ML VIAL ONE (08:20)
[2021-08-28] MEDS ORDERED: ePHEDrine sulfate 50 MG/ML AMP ONE (08:20)
[2021-08-28] MEDS ORDERED: BUPIVACAINE 0.25% 30 ML VIAL ONE (08:20)
[2021-08-28] MEDS ORDERED: LIDOCAINE 2%/EPINEPHRINE 1:200,000 20 ML SDV ONE (08:20)
[2021-08-28] MEDS ORDERED: fentaNYL citrate 100 MCG/2 ML VIAL ONE (08:20)
[2021-08-28] MEDS ORDERED: fentaNYL 2MCG/ML ROPIVACAINE 1.25MG/ML 100 ML BAG EPI ONE (08:21)
[2021-08-28] MEDS ORDERED: NALOXONE HCL 1 MG in SODIUM CHLORIDE 0.9% 1000ML 1,000 ML IV PRN (08:45)
[2021-08-28] MEDS ORDERED: ONDANSETRON INJ 2 MG/ML 2 ML VIAL IV PRN (08:45)
[2021-08-28] MEDS ORDERED: fentaNYL 2MCG/ML ROPIVACAINE 1.25MG/ML 100 ML BAG EPI PRN (08:45)
[2021-08-28] MEDS ORDERED: NALBUPHINE HCL INJ 10 MG/ML AMP IV PRN (08:45)
[2021-08-28] MEDS ORDERED: ePHEDrine sulfate 50 MG/ML AMP IV PRN (08:45)
[2021-08-28] MEDS ORDERED: NALOXONE HCL 0.4 MG/1 ML VIAL/CARP IV PRN (08:45)
[2021-08-28] MEDS ORDERED: diphenhydrAMINE 50 MG/ML VIAL IV PRN (08:45)
--- NOTE | 2021-08-28 08:48 | Anesthesiology Consultation ---
Date of Service August 28, 2021 Assessment & Plan Chart Review Chart Review: Patient NOT seen in Pre Admission Testing and Acceptable Risk for Labor Epidural Consults Requested none ASA ASA2 Proposed Anesthesia Anesthesia Type: Labor Epidural and CSE Risk / Benefits Reviewed With: PT / POA / Parent / Guardian, Accepts Plan and Informed Consent Obtained History Height/Weight Height: 5 ft 6 in Weight: 86.273 kg Allergies Allergy/AdvReac Type Severity Reaction Status Date / Time No Known Allergies Allergy Verified 08/25/21 10:58 Medications Home Medications Medication Instructions Recorded Confirmed Last Taken prenat.vits,cristina,[id number] 1 tab PO DAILY 09/20/18 08/28/21 08/27/21 21:00 cholecalciferol (vitamin D3) 1 cap PO DAILY 01/21/21 08/28/21 08/27/21 09:00 aspirin 81 mg capsule 81 mg PO DAILY 08/28/21 08/28/21 08/27/21 21:00 Active Medications Generic Name Dose Route Start Last Admin Trade Name Freq PRN Reason Stop Dose Admin Lactated Ringer's 1,000 mls @ 125 mls/hr 08/28/21 06:31 08/28/21 08:15 Lr IV 08/30/21 06:30 999 mls/hr .Q8H PRN Infusion L&D Protocol Protocol NPO Date Last Intake of Fluids: 08/28/21 Time Last Intake of Fluids: 08:00 Date Last Intake of Solids: 08/27/21 Time Last Intake of Solids: 17:30 Past Medical History Medical History Vasovagal syncope Exercise / Class Metabolic Activity II 4-5 Yardwork/Stairs/Walk up hill Past Family History Family History Grandfather (Paternal) Colorectal cancer Father Diabetes Hypertension Kidney stones Dyslipidemia Sister Gestational diabetes Kidney stones Bipolar disorder Denies family history of Ovarian cancer Breast cancer Uterine cancer Past Surgical History Surgical History History of ovarian cystectomy S/P wisdom tooth extraction Past Anesthesia History No Hx of Anesthesia Complications and No Family Hx of Anesthesia Complications History of PONV No Hx of PONV and No Hx of Motion Sickness Social History Smoking Status: Never smoker Hx Alcohol Use: No Hx Substance Use: No Review of Systems no chest pain or sob Physical Exam Vital Signs Last Vital Signs Temp 36.5 C 08/28/21 07:29 Pulse 78 08/28/21 07:29 Resp 22 08/28/21 07:29 BP 130/91 08/28/21 07:29 SpO2 100 ENMT Mouth: no TMJ abnormality Thyromental Distance: > or= 3.5 Finger Breadths Mallampati Class: II Neck normal visual inspection Respiratory normal respiratory effort Auscultation: lungs clear to auscultation bilaterally Cardiovascular Rate/Rhythm: regular rate and regular rhythm Musculoskeletal Spine: normal cervical ROM Neurologic moves all extremities Psychiatric Orientation: alert and oriented x 3 Testing Laboratory Results 08/28/21 06:56
[2021-08-28] MEDS ORDERED: LIDOCAINE 1% LOCAL 20 ML VIAL ONE (09:21)
[2021-08-28] MEDS ORDERED: PENICILLIN G POTASSIUM 3 MU in DEXTROSE 5% 100 ML IV PRN (09:32)
[2021-08-28] MEDS ORDERED: IBUPROFEN 600 MG TAB PO PRN (09:37)
[2021-08-28] MEDS ORDERED: BENZOCAINE 20% AER SPR 82.5 GM CAN EXT PRN (09:37)
[2021-08-28] MEDS ORDERED: bisacodyL 10 MG SUPP PR PRN (09:37)
[2021-08-28] MEDS ORDERED: DIPHTHERIA/TETANUS/PERTUSSIS 0.5 ML SYR/VIAL IM ONE (09:37)
[2021-08-28] MEDS ORDERED: ACETAMINOPHEN 325 MG TAB PO PRN (09:37)
[2021-08-28] MEDS ORDERED: HYDROCORTISONE ACETATE 25 MG SUPP PR PRN (09:37)
[2021-08-28] MEDS ORDERED: oxyCODONE/ACETAMINOPHEN 5mg/325mg TAB PO PRN (09:37)
--- NOTE | 2021-08-28 10:07 | Delivery Summary ---
Vaginal Delivery Summary Date of Service August 28, 2021 Vaginal Delivery Summary and 1st Degree LAC Patient is a 30-year-old 3 para 1-0-1-1 female EDC of 09/01/2021 who presented at 39-3/7 weeks in active labor. She was progressing rapidly and requested epidural analgesia at 8 cm dilated. She is GBS positive and received 1 dose of penicillin prior to delivery. Membranes ruptured shortly after she received the epidural and she had a strong urge to push. She was then noted to be fully dilated ; and through several contractions which she brought the vertex to . Without maternal effort the head was delivered. A loose double nuchal cord was reduced. The rest of the delivered without difficulty. The female infant was vigorous and crying upon delivery. She was placed on the mother's abdomen for further attention and drying. The cord was clamped and cut after 1 minute. Cord blood sample was obtained. The placenta was expressed intact with a three-vessel cord. bleeding was controlled with dilute Pitocin. A second-degree vaginal tear was repaired with 3-0 chromic in the usual fashion. 1% lidocaine was needed locally for adequate anesthesia prior to doing the repair. Estimate blood loss was 200 cc. Mother and infant were doing well after delivery. [facility] Vaginal Delivery Charge Delivery Type Details: and 1st Degree LAC
--- NOTE | 2021-08-28 11:13 | Anesthesia Procedure Note ---
Date of Service August 28, 2021 Anesthesia Post Epidural Note Vital Signs Vital Signs: Temp Pulse Resp BP Pulse Ox 36.5 C 83 18 114/70 98 08/28/21 07:29 08/28/21 10:59 08/28/21 09:30 08/28/21 10:59 08/28/21 10:13 Pain Intensity Lower Abdomen: Pain Intensity: 0 Notes Mental Status: alert / awake / arousable and participated in evaluation Nausea / Vomiting: adequately controlled Pain: adequately controlled Airway Patency, RR, SpO2: stable & adequate BP & HR: stable & adequate Hydration State: stable & adequate Neuraxial Anesthesia: was administered and sensory block is resolving Anesthetic Complications: no major complications apparent and Pt Satisfied with anesthetic care Epidural: Removed without complications and With tip intact
[2021-08-28] MEDS: DOCUSATE SODIUM 100 MG CAP PO SCH (21:06)
--- NOTE | 2021-08-29 05:35 | Obstetrical Progress Note ---
Date of Service <Carrie Rose - Last Filed: 08/29/21 06:39> August 29, 2021 Assessment & Plan <Carrie Rose - Last Filed: 08/29/21 06:39> (1) Status post vaginal delivery: (2) Need for rhogam due to Rh negative mother: Plan continue OOB, ambulation, diet as tolerated <Paulina Blair MD, FACOG - Last Filed: 08/29/21 07:53> (1) Status post vaginal delivery: (2) Need for rhogam due to Rh negative mother: Subjective <Carrie Rose - Last Filed: 08/29/21 06:39> Wilma is a 39 3/7 y/o female who is now PPD # 1 following vaginal delivery at 39 3/7. Reports feeling well overall this morning. Mild abdominal cramping well managed on analgesics. Voiding. Tolerating meals overnight and able to ambulate some. Is passing gas, but no bowel movements. Some persistent lochia with some improvement this morning. Breast/Bottle feeding. Review of Systems Denies fever, chills, sweats Denies shortness of breath, difficulty breathing, chest pain, palpitations, chest pressure. Denies breast pain. Denies dysuria. Denies headache or changes in vision. Physical Exam <Carrie RoseDO - Last Filed: 08/29/21 06:39> General: Alert, oriented. No acute distress. Cardiac: Regular rate and rhythm, no murmurs/rubs/gallops. Respiratory: Clear to auscultation bilaterally a/p, no wheezes/rales/rhonchi. No increased work of breathing. Symmetrical chest rise. No respiratory distress. Abdomen: Soft, nontender, nondistended. Bowel sounds present. Uterus: Uterine fundus firm, palpable 3 cm below umbilicus. Lower Extremities: No lower extremity edema or swelling. No deep calf pain. Mitchell's negative bilaterally. Results & Data ([facility]) <Carrie RoseDO - Last Filed: 08/29/21 06:39> Vital Signs (Past 12 Hours) Vital Signs Temp Pulse Resp BP Pulse Ox O2 Del Method 08/29/21 03:50 36.9 C 81 16 118/76 99 Room Air 08/28/21 23:19 36.8 C 94 H 16 125/76 99 Room Air 08/28/21 19:56 36.9 C 93 H 16 129/88 99 Room Air <Paulina Blair MD, FACOG - Last Filed: 08/29/21 07:53> Co-Signing Physician Notes Resident Physician Supervision Note: I interviewed and examined the patient. Discussed with Dr. Rose and agree with findings and plan as documented in the note. Any exceptions or clarifications are listed here: [None] Documented By: Paulina Blair MD, FACOG Resident Activity Tracking <Carrie Rose, DO - Last Filed: 08/29/21 06:39> Resident Involvement: Resident Care Provided Care Provided: OB Delivery (Post )
[2021-08-29 07:02] LABS: Hematocrit (blood only) 34.7 % (34.1-44.9); Hemoglobin 11.8 g/dl (12.0-16.0); Mean Corpuscular Hemoglobin 30.6 pg (25.0-34.0); Mean Corpuscular Volume 89.9 fL (80.0-100.0); Mean Platelet Volume 11.9 fL (9.4-12.3); Platelet Count 142 K/uL (130-400); RDW Coefficient of Variation 13.2 % (11.5-14.5); RDW Standard Deviation 42.9 fL (36.4-46.3); Red Blood Count 3.86 M/uL (3.93-5.22); White Blood Count 10.45 K/ul (4.8-10.8)
[2021-08-29] MEDS ORDERED: PRENATAL VITAMIN 1 TAB PO SCH (08:00)
[2021-08-29] MEDS: DOCUSATE SODIUM 100 MG CAP PO SCH (09:24)
[2021-08-29] MEDS ORDERED: bisacodyL 5 MG TABEC PO SCH (20:00)
== END 2021-08-29 13:10 | disposition home or self-care (01) | DRG 807 ==
LOC: OPB 05:51 → 4S1 05:53 → 4E2 11:55
DX: O70.1 Second degree perineal laceration during delivery; Z87.59 Personal history of other complications of pregnancy, childbirth and the puerperium; Z3A.39 39 weeks gestation of pregnancy; O69.81X0 Labor and delivery complicated by cord around neck, without compression, not applicable or unspecified; Z37.0 Single live birth; O99.824 Streptococcus B carrier state complicating childbirth; O26.893 Other specified pregnancy related conditions, third trimester; Z67.91 Unspecified blood type, Rh negative; Z79.82 Long term (current) use of aspirin